=== PATIENT | male | born 1985 | race African-American/Black ===

== ENCOUNTER 2019-07-23 20:28 | Emergency (ER) | payer OTHER ==
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
[2019-07-23 22:53] VITALS: BP 141/69
== END 2019-07-23 22:53 | disposition home or self-care (01) ==
LOC: ER 20:28
DX: M25.561 Pain in right knee (principal); M54.5 Low back pain; V48.6XXA Car passenger injured in noncollision transport accident in traffic accident, initial encounter
CPT/HCPCS: 99283